=== PATIENT | female | born 1955 | race Caucasian/White ===

== ENCOUNTER 2018-12-19 16:40 | Emergency (ER) | payer MEDICARE, OTHER ==
[~2018-12-19] VITALS: Ht 170.2 cm; Wt 99.8 kg
[~2018-12-19 16:40] MED LIST: ALPR.25; ALPR.5 PO; CHLO25 PO; CLON.1 PO; Cyclobenzaprine5 MG PO; FOLI400 PO; GABA300 PO; HTN MEDICATION; HYDCHL12.5 PO; HYDCHL50 PO; Hair, Skin & N1 EACH PO; Hydrochlorothia50 MG PO; Keflex500 MG PO; LEVSOD50; LISI20 PO; LISI5 PO; LOVA20 PO; MECL12.5 PO; MELA3 PO; METO25 PO; MONT10T PO; Nicoderm Cq1 EAC1 TOP; Norco 5-325 Ta1 EACH PO; ONDA4ODT MM; PROM25 PO; Percocet 5-3251 EACH PO; Synthroid25 MCG PO; THIA100 PO; TRAZ50 PO; ULTRA-LIGHT RO1 EACH MC; VENL37.5 PO; VITAMIN D; Valium5 MG PO; WATER PILL; Zestril40 MG PO; Zofran Odt4 MG SL; [UNRECOGNIZED DRUG - REMARK]
[2018-12-19 17:26] LABS: BASOPHILS ABSOLUTE AUTO 0.04 K/mm3 (0.00-0.23); BASOPHILS PERCENT AUTO 0 % (0-2); EOSINOPHILS ABSOLUTE AUTO 0.18 K/mm3 (0.00-0.68); EOSINOPHILS PERCENT AUTO 2 % (0-6); Hemoglobin 17.3 g/dL (11.5-16.0); IMMATURE GRAN ABSOLUTE AUTO 0.03 K/mm3 (0.00-0.10); IMMATURE GRAN PERCENT AUTO 0 % (0-1); LYMPHOCYTES ABSOLUTE AUTO 3.19 K/mm3 (0.84-5.20); LYMPHOCYTES PERCENT AUTO 32 % (21-46); MONOCYTES ABSOLUTE AUTO 1.06 K/mm3 (0.16-1.47); MONOCYTES PERCENT AUTO 11 % (4-13); Mean Corpuscular HGB Conc 33.3 g/dL (31.5-36.5); Mean Corpuscular Volume 87 fL (80-100); Mean Platelet Volume 10.9 fL (9.1-12.4); NEUTROPHILS ABSOLUTE AUTO 5.51 K/mm3 (1.96-9.15); NEUTROPHILS PERCENT AUTO 55 % (41-73); Platelet Count 265 K/mm3 (150-400); RDW Coefficient Variation 12.9 % (11.7-14.2); RDW Standard Deviation 41.1 fL (35.1-46.3); Red Blood Cell Count 5.97 M/mm3 (3.80-5.20); White Blood Cell Count 10.01 K/mm3 (4.00-11.30)
[2018-12-19 17:51] LABS: Alanine Aminotransfer (ALT/SGP 18 U/L (12-78); Albumin, Blood 3.2 g/dL (3.4-5.0); Albumin/Globulin Ratio 0.7 (0.8-1.8); Alk Phos 141 U/L (50-136); Anion Gap 7 mmol/L (6-16); Aspartate Aminotrans (AST/SGOT 13 U/L (12-37); Bilirubin, Total 0.5 mg/dL (0.1-1.0); Blood Urea Nitrogen 14 mg/dL (8-24); Bun/Creatinine Ratio 15.1 (12.0-20.0); CO2, Blood 28 mmol/L (21-32); Calcium, Blood 9.7 mg/dL (8.5-10.1); Chloride, Blood 103 mmol/L (98-108); Creatinine, Blood 0.93 mg/dL (0.40-1.00); Free Thyroxine 1.34 ng/dL (0.70-1.60); Globulin, Blood 4.3 g/dL (2.2-4.0); Glomerular Filtration Rate >60 (60-); Glucose, Blood 313 mg/dL (70-99); Potassium, Blood 3.8 mmol/L (3.5-5.5); Sodium, Blood 138 mmol/L (136-145); Total Protein, Blood 7.5 g/dL (6.4-8.2)
[2018-12-19 18:32] LABS: Source, Urine Clean Catch
[2018-12-19 18:53] LABS: Bilirubin, Urine Neg (Neg); Blood, Urine Neg (Neg); Glucose Qualitative, Urine 4+ (Neg); Ketones, Urine Neg (Neg); Leukocyte Esterase, Urine Neg (Neg); Nitrite, Urine Neg (Neg); Protein, Urine 1+ (Neg); Specific Gravity, Urine 1.025 (1.003-1.022); Urobilinogen, Urine NORM (Normal)
[2018-12-19 18:55] LABS: Appearance, Urine Clear (Clear); Color, Urine Yellow (P-Yellow)
== END 2018-12-19 20:13 | disposition home or self-care (01) ==
LOC: ER 16:40
PROVIDERS: Emergency Medicine
DX: E11.65 Type 2 diabetes mellitus with hyperglycemia (principal); R42 Dizziness and giddiness; I10 Essential (primary) hypertension; E03.9 Hypothyroidism, unspecified; E78.00 Pure hypercholesterolemia, unspecified; Z79.899 Other long term (current) drug therapy
CPT/HCPCS: 36415; 71046; 80053; 82947; 83036; 83735; 84439; 84443; 85025; 93005; 93010; 96360; 99284-25; J7030

== ENCOUNTER 2019-09-24 09:28 | Emergency (ER) | payer MEDICARE, OTHER ==
[~2019-09-24] VITALS: Ht 167.6 cm; Wt 99.8 kg
[2019-09-24] MEDS ORDERED: METF500 PO (09:33)
[2019-09-24] MEDS ORDERED: IBUP800 PO (11:57)
[2019-09-24] MEDS ORDERED: Robaxin-750750 MG PO (11:57)
[2019-09-24] MEDS ORDERED: Norco 7.5-3251 EACH PO (11:57)
== END 2019-09-24 12:46 | disposition home or self-care (01) ==
LOC: ER 09:28
DX: M51.17 Intervertebral disc disorders with radiculopathy, lumbosacral region (principal); I10 Essential (primary) hypertension; E11.9 Type 2 diabetes mellitus without complications; E03.9 Hypothyroidism, unspecified; Z79.899 Other long term (current) drug therapy; Z79.84 Long term (current) use of oral hypoglycemic drugs; Z86.73 Personal history of transient ischemic attack (TIA), and cerebral infarction without residual deficits
CPT/HCPCS: 72100; 96372; 99283-25; J1170

== ENCOUNTER 2021-05-30 18:21 | Emergency (ER) | payer MEDICARE, OTHER ==
[~2021-05-30] VITALS: Ht 170.2 cm; Wt 88.5 kg
[~2021-05-30 18:21] MED LIST changes: +IBUP800 PO; +METF500 PO; +Norco 7.5-3251 EACH PO; +Robaxin-750750 MG PO
== END 2021-05-30 20:42 | disposition home or self-care (01) ==
LOC: ER 18:21
DX: S83.91XA Sprain of unspecified site of right knee, initial encounter (principal); I10 Essential (primary) hypertension; E11.9 Type 2 diabetes mellitus without complications; E03.9 Hypothyroidism, unspecified; Z79.899 Other long term (current) drug therapy; Z79.84 Long term (current) use of oral hypoglycemic drugs; Z86.73 Personal history of transient ischemic attack (TIA), and cerebral infarction without residual deficits; W18.30XA Fall on same level, unspecified, initial encounter
CPT/HCPCS: 73562-RT; 99283-25; A9270

== ENCOUNTER 2022-07-03 06:06 | Emergency (ER) | payer MEDICARE, OTHER ==
[~2022-07-03] VITALS: Ht 170.2 cm; Wt 87.1 kg
[2022-07-03 06:56] LABS: BASOPHILS ABSOLUTE AUTO 0.03 K/mm3 (0.00-0.23); BASOPHILS PERCENT AUTO 0 % (0-2); EOSINOPHILS ABSOLUTE AUTO 0.18 K/mm3 (0.00-0.68); EOSINOPHILS PERCENT AUTO 2 % (0-6); Hematocrit 50.4 % (33.0-51.0); Hemoglobin 16.3 g/dL (11.5-16.0); IMMATURE GRAN ABSOLUTE AUTO 0.02 K/mm3 (0.00-0.10); IMMATURE GRAN PERCENT AUTO 0 % (0-1); LYMPHOCYTES ABSOLUTE AUTO 2.58 K/mm3 (0.84-5.20); LYMPHOCYTES PERCENT AUTO 34 % (21-46); MONOCYTES ABSOLUTE AUTO 1.05 K/mm3 (0.16-1.47); MONOCYTES PERCENT AUTO 14 % (4-13); Mean Corpuscular HGB 27.8 pg (26.0-34.0); Mean Corpuscular HGB Conc 32.3 g/dL (31.5-36.5); Mean Corpuscular Volume 86 fL (80-100); Mean Platelet Volume 10.8 fL (9.1-12.4); NEUTROPHILS ABSOLUTE AUTO 3.85 K/mm3 (1.96-9.15); NEUTROPHILS PERCENT AUTO 50 % (41-73); Platelet Count 247 K/mm3 (150-400); RDW Coefficient Variation 12.9 % (11.7-14.2); Red Blood Cell Count 5.86 M/mm3 (3.80-5.20); White Blood Cell Count 7.71 K/mm3 (4.00-11.30)
[2022-07-03 07:09] LABS: Albumin/Globulin Ratio 0.8 (0.8-1.8); Bilirubin, Total 0.6 mg/dL (0.1-1.0); Bun/Creatinine Ratio 14.8 (12.0-20.0); Calcium, Blood 10.3 mg/dL (8.5-10.1); Creatinine, Blood 0.95 mg/dL (0.40-1.00); Globulin, Blood 3.9 g/dL (2.2-4.0); Total Protein, Blood 6.9 g/dL (6.4-8.2)
== END 2022-07-03 09:55 | disposition home or self-care (01) ==
LOC: ER 06:06
PROVIDERS: Student in an Organized Health Care Education/Training Program
DX: R42 Dizziness and giddiness (principal); S00.33XA Contusion of nose, initial encounter; E11.9 Type 2 diabetes mellitus without complications; I10 Essential (primary) hypertension; E03.9 Hypothyroidism, unspecified; Z79.899 Other long term (current) drug therapy; Z79.84 Long term (current) use of oral hypoglycemic drugs; Z86.73 Personal history of transient ischemic attack (TIA), and cerebral infarction without residual deficits; W18.30XA Fall on same level, unspecified, initial encounter; Y92.002 Bathroom of unspecified non-institutional (private) residence as the place of occurrence of the external cause
CPT/HCPCS: 70450; 71046; 72125; 80053; 83735; 83880; 84484; 85025; 93005; 93010; A9270; J1885

== ENCOUNTER 2023-01-05 09:29 | Day surgery (SDC) | payer MEDICARE, OTHER ==
[~2023-01-05] VITALS: Ht 170.2 cm; Wt 80.7 kg
[~2023-01-05 09:29] MED LIST changes: +ALBU90OI; +Aspir 8181 MG; +FARXIGA5 MG; +FLUO10; +MONT5TCH; +ROSU5
--- NOTE | 2023-01-05 11:11 | NUR ---
01/05/23 Bruna Lyman NO FURTHER QUESTIONS OR COMMENTS.
--- NOTE | 2023-01-05 11:37 | NUR ---
01/05/23 1137 Alexsandra Mathis 5ML OF NACL ADDED TO 5ML OF LIDOCAINE 2% WITH EPI 1:100,000 TO CREATE A LOCAL SOLUTION OF LIDOCAINE 1% WITH EPI 1:200,000. EPI USED TO SOAK PLEDGETTS FOR SURGICAL FIELD.
--- NOTE | 2023-01-05 12:40 | NUR ---
01/05/23 1240 Isabel Arcelia PATIENT'S HR IN 140S UPON ARRIVAL TO PACU. DR TUCKER AT BEDSIDE. PT WAS GIVEN 10MG EPHEDRINE IN OR BY DR TUCKER PER ANESTHESIA RECORD AND AFRIN. HR SLOWLY DECREASING AND AT 112-114 CURRENTLY. 02 AT 88-90% UPON ARRIVAL TO PACU AND PT PLACED ON 10L O2 VIA FT. O2 IMPROVED TO 100%. PT CURRENTLY ON RA AND SATS MAINTAINING AT 95% DRESSING FROM OR REMOVED AND MUSTACHE DRESSING PLACED. PT DENIES PAIN, DENIES NAUSEA. WILL CONTINUE TO MONITOR PATIENT.
--- NOTE | 2023-01-05 12:52 | NUR ---
01/05/23 1252 KAYLA LOPEZ PT HAVING NAUSEA. REGLAN ORDERED. AT BEDSIDE. PT STILL IN BED.
[2023-01-05 12:56] VITALS: BP 163/90
== END 2023-01-05 14:10 | disposition home or self-care (01) ==
LOC: ORSCSDS 09:29
PROVIDERS: Otolaryngology
PROC: 09BM0ZZ Excision of Nasal Septum, Open Approach (ICD-10-PCS; principal; 2023-01-05 11:00)
PROC: 09SL0ZZ Reposition Nasal Turbinate, Open Approach (ICD-10-PCS; principal; 2023-01-05 11:00)
DX: J34.2 Deviated nasal septum (principal); J34.3 Hypertrophy of nasal turbinates; I10 Essential (primary) hypertension; K21.9 Gastro-esophageal reflux disease without esophagitis; E11.9 Type 2 diabetes mellitus without complications; F41.8 Other specified anxiety disorders; E78.00 Pure hypercholesterolemia, unspecified; Z79.84 Long term (current) use of oral hypoglycemic drugs; Z79.82 Long term (current) use of aspirin; Z79.899 Other long term (current) drug therapy
CPT/HCPCS: 82947; C1776; J0171; J1100; J2250; J2405; J2550; J2704; J2710; J2765; J3010; J7120

== ENCOUNTER 2023-02-05 08:57 | Inpatient (IN) | payer MEDICARE, OTHER ==
[2023-02-05 09:38] LABS: BASOPHILS ABSOLUTE AUTO 0.05 K/mm3 (0.00-0.23); BASOPHILS PERCENT AUTO 1 % (0-2); EOSINOPHILS ABSOLUTE AUTO 0.21 K/mm3 (0.00-0.68); EOSINOPHILS PERCENT AUTO 2 % (0-6); Hematocrit 50.4 % (33.0-51.0); Hemoglobin 16.4 g/dL (11.5-16.0); IMMATURE GRAN ABSOLUTE AUTO 0.03 K/mm3 (0.00-0.10); IMMATURE GRAN PERCENT AUTO 0 % (0-1); LYMPHOCYTES ABSOLUTE AUTO 2.46 K/mm3 (0.84-5.20); LYMPHOCYTES PERCENT AUTO 25 % (21-46); MONOCYTES ABSOLUTE AUTO 1.13 K/mm3 (0.16-1.47); MONOCYTES PERCENT AUTO 12 % (4-13); Mean Corpuscular HGB 27.4 pg (26.0-34.0); Mean Corpuscular HGB Conc 32.5 g/dL (31.5-36.5); Mean Corpuscular Volume 84 fL (80-100); Mean Platelet Volume 10.2 fL (9.1-12.4); NEUTROPHILS ABSOLUTE AUTO 5.81 K/mm3 (1.96-9.15); NEUTROPHILS PERCENT AUTO 60 % (41-73); Platelet Count 254 K/mm3 (150-400); RDW Coefficient Variation 13.2 % (11.7-14.2); RDW Standard Deviation 40.5 fL (35.1-46.3); Red Blood Cell Count 5.99 M/mm3 (3.80-5.20); White Blood Cell Count 9.69 K/mm3 (4.00-11.30)
[2023-02-05 09:53] LABS: Albumin, Blood 3.2 g/dL (3.4-5.0); Albumin/Globulin Ratio 0.8 (0.8-1.8); Bilirubin, Total 0.5 mg/dL (0.1-1.0); Bun/Creatinine Ratio 15.7 (12.0-20.0); Calcium, Blood 10.2 mg/dL (8.5-10.1); Creatinine, Blood 1.02 mg/dL (0.40-1.00); Potassium, Blood 4.2 mmol/L (3.5-5.5); Total Protein, Blood 7.2 g/dL (6.4-8.2)
[2023-02-05 11:19] LABS: Source, Urine Straight Cath
[2023-02-05 11:54] LABS: Appearance, Urine Clear (Clear); Bilirubin, Urine Neg (Neg); Blood, Urine 1+ (Neg); Color, Urine Yellow (P-Yellow); Glucose Qualitative, Urine 4+ (Neg); Ketones, Urine 2+ (Neg); Leukocyte Esterase, Urine Neg (Neg); Nitrite, Urine Neg (Neg); Protein, Urine 2+ (Neg); Specific Gravity, Urine 1.015 (1.003-1.022); Urobilinogen, Urine NORM (Normal)
[2023-02-05 13:09] LABS: International Normalized Ratio 1.01; Prothrombin Time Results 10.6 Sec (9.7-11.5)
[2023-02-05 13:10] LABS: White Blood Cells, Urine 0-2 /hpf (0-5)
[2023-02-05 13:11] LABS: Bacteria Rare /hpf; Squamous Epithelial Cells Rare /hpf (Few)
--- NOTE | 2023-02-05 15:39 | NUR ---
RECIEVED REPORT FROM NIKHIL IN EMERGENCY DEPT. STATED THEY WOULD BE BRINGING THE PATIENT UP SOON TO BE ADMITTED TO MEDICAL FLOOR ROOM 360
[2023-02-05] MEDS ORDERED: ONDA4ODT PO (16:15)
[2023-02-05] MEDS ORDERED: LEVOTHYROXINE125 MC9 PO (16:15)
[2023-02-05] MEDS ORDERED: ALBU90OI INH (16:16)
[2023-02-05] MEDS ORDERED: Crestor40 MG PO (16:17)
[2023-02-05] MEDS ORDERED: MONT10T PO (16:17)
[2023-02-05] MEDS ORDERED: LISI20 PO (16:17)
[2023-02-05] MEDS ORDERED: FARXIGA5 MG PO (16:17)
[2023-02-05] MEDS ORDERED: METF500 PO (16:17)
[2023-02-05] MEDS ORDERED: Prozac20 MG PO (16:18)
[2023-02-05] MEDS ORDERED: FLONASE ALLERG9.9 M2 (16:19)
[2023-02-05 16:41] VITALS: BP 199/101
--- NOTE | 2023-02-05 17:46 | NUR ---
ADMISSION ASSESSMENT REVIEWED AND CHARTED WITH MALLORIE, STUDENT NURSE AND I AGREE WITH HER DOCUMENTATION FOR THIS PATIENT. PATIENT GIVEN SOME WATER ON ARRIVAL TO FLOOR AND SHE COUGHED SEVERAL TIMES AFTER A SMALL SIP. DR. HAIR NOTIFIED AND ST CONSULT ORDERED. B/P 199/101, DR HAIR IMFORMED OF THIS AND HE WANTS SBP BELOW 220 SO NO ORDERS RECEIVED. PATIENT WEAK ON L SIDE FROM PREVIOUS CVA AND NOW HAS R SIDED WEAKNESS FROM CVA TODAY. R FACIAL DROOP NOTED. PATIENT WEAKER ON R NOW THEN L. WEARING ATTENDS, REPORTS INCONTINENCE AND FREQUENCY. MULTIPLE BRUISSING AND SCABS TO BUE. YEAST RASH TO FOLDS, NYSTATIN POWDER ORDERED. FALL PRECAUTIONS IN PLACE. PATIENT ORIENTED TO ROOM AND USE OF CALL LIGHT.
[2023-02-05] MEDS ORDERED: ONDA4ODT MM (18:10)
[2023-02-05 20:58] VITALS: BP 177/98
--- NOTE | 2023-02-06 05:04 | NUR ---
SHIFT SUMMARY 67 YR F ADMITTED ON 02/05/23 FOR CVA. FULL CODE. NO ACUTE CHANGES THIS SHIFT. PT IS ABLE TO SPEAK LEGIBLY AND MAKE HER NEEDS KNOWN. SHE IS INCONTINENT BUT CALLS FOR ASSISTANCE TO GET CLEANED UP AND CHANGED. YEASTY PANNUS AND GROIN FOLDS WERE CLEANED AND NYSTATIN POWDER APPLIED. SHE STATED SHE WAS VERY TIRED AND WANTED TO SLEEP.
[2023-02-06 05:14] VITALS: BP 186/101
[2023-02-06 06:06] LABS: Albumin, Blood 2.8 g/dL (3.4-5.0); Albumin/Globulin Ratio 0.8 (0.8-1.8); Bilirubin, Total 0.9 mg/dL (0.1-1.0); Bun/Creatinine Ratio 11.3 (12.0-20.0); Calcium, Blood 9.4 mg/dL (8.5-10.1); Creatinine, Blood 0.97 mg/dL (0.40-1.00); Globulin, Blood 3.4 g/dL (2.2-4.0); Potassium, Blood 4.2 mmol/L (3.5-5.5); Total Protein, Blood 6.2 g/dL (6.4-8.2)
[2023-02-06 07:07] VITALS: BP 173/99
--- NOTE | 2023-02-06 09:37 | NUR ---
SPOKE TO DR KIRBY- PT MEDS CHANGED TO CRUSHED IN APPLESAUCE. PROZAC CAN NOT BE OPENED OR CRUSHED PER PHARMACY, ORDER CCHANGED TO LIQUID. PT HAS EC ASPIRIN 325MG ORDERED, CHANGED TO 81MG CHEW.
[2023-02-06 10:27] VITALS: BP 188/101
[2023-02-06 11:47] VITALS: BP 179/94
--- NOTE | 2023-02-06 11:55 | NUR ---
called dr perrin- PT SBP ELEVATED GREATER THAN 170, 1 HOUR AFTER RECIEVING PO LISINOPRIL. CALLED DR PERRIN. ORDER RECIEVED TO RECHECK BP IN 4 HOURS AND CALL IF STILL ELEVATED.
[2023-02-06 15:42] VITALS: BP 160/103
--- NOTE | 2023-02-06 15:42 | NUR ---
ELEVATED BP- repeat vitals completed sbp 160, less than 170 so md not notified.
--- NOTE | 2023-02-06 17:55 | NUR ---
SHIFT SUMMARY- PT HAS HAD NO ACUTE CHANGE T/O THE SHIFT. IVF INFUSING IN THE LAC IV, FLUSHES WELL. PT WORKED WITH PHYSICAL THERAPY TODAY, SHE IS A 2P MAX ASSIST WITH TRANSFERS. PT HAS A LITTLE DIFFICULTY FOLLOWING DIRECTIONS, IT TAKES A MINUTE TO PROCESS THE REQUEST, AND SOMETIMES REPEATING THE REQUEST. PT CURRENTLY IN BED, CALL LIGHT IN REACH, NO S&S OF DISTRESS NOTED. PT WAS SEEN BY SPEECH THERAPY AT THE START OF THE DAY, PUREE DIET ORDERED WITH MEDS CRUSHED IN APPLESAUCE. CALLED PHARMACY TO DETERMINE IF ALL MEDS CAN BE CRUSHED AND SPOKE TO MD TO CHANGE MEDS THAT CAN NOT BE CRUSHED. WILL PASS ALL ON IN BEDSIDE REPORT TO NIGHT RN.
--- NOTE | 2023-02-06 18:43 | NUR ---
PT HAD A LINE ASSEMBLER [employer] COME TO SEE HER THIS EVENING TO SAY A SMALL PRAYER.
[2023-02-06 19:45] VITALS: BP 177/99
[2023-02-07] VITALS (9 sets, daily range): BP systolic 157–190; BP diastolic 82–98
--- NOTE | 2023-02-07 04:05 | NUR ---
SHIFT SUMMERY, PT RESTING IN BED. PT CHANGED AND TURNED. PT ALERT AND ORIENTED, PT APPEARS TO BE COMFORTABLE, CALL LIGHT IN REACH.
--- NOTE | 2023-02-07 07:38 | NUR ---
MRI- RECIEVED A CALL FROM PUBLIC WELFARE WORKER. FOR CVA MRI'S THE ORDER SHOULD BE WO-CONTRAST. CALLED DR KIRBY TO CONFIRM THE ORDER CHANGE TO WO-CONTRAST. RECIEVED OK TO CHANGE THE ORDER TO MRI HEAD WITHOUT CONTRAST.
--- NOTE | 2023-02-07 09:51 | NUR ---
CALLED DR KIRBY- HELEN BP WAS ELEVATED THIS MORNING, SCHEDULED MEDS GIVEN A LITTLE EARLY PRIOR TO RECHECKING AND CONTACTING . ORDER WAS CHANGED TO 30MG FROM 20MG. CALLED , PT HAS ALREADY RECIEVED 20MG OF LISINOPRIL. RECIEVED AN ORDER FOR A OT 10MG PT DOSE OF LISINOPRIL AND WE WILL START THE 30MG DOSE TOMORROW. MANUAL BP WAS PERFORMED PRIOR TO CALLING 166/96.
--- NOTE | 2023-02-07 16:38 | NUR ---
PT C/O PAIN 10/10 WITH NUMBNESS IN THE RIGHT ARM. MANUAL BP CHECKED 190/98. PT DENIED THE NUMBENESS EARLIER IN THE SHIFT AND DESCRIBED THE PAIN (ONLY IN THE UPPER PART OF THE RIGHT ARM) AN ACHE RATES A 5/10.
--- NOTE | 2023-02-07 16:44 | NUR ---
SPOKE TO DR KIRBY- PT BP ELEVATED AND SHE IS C/O RIGHT ARM PAIN, THE ARM IS WARM TO TOUCH AND RADIAL PULSE IS PALAPBLE. MD AWARE. MD WILL ORDER BP MEDICATION.
--- NOTE | 2023-02-07 17:51 | NUR ---
SHIFT SUMMARY: PT IS A 67 YR OLD FEMALE A&O X4 HERE DAY 2 POST ISCHEMIC CVA. SHOWING SIGNS OF IMPROVEMENT SINCE YESTERDAY 02/06. EVALUATED BY ST AND SWITCHED FROM HONEY THICK LIQUIDS TO THIN W/O STRAWS. CONT. PUREE DIET AND MEDS CRUSHED IN APPLESAUCE. SHE IS TOLERATING THIN LIQUIDS AT THIS TIME WITH NO SIGNS OF ASPIRATING. BPs HAVE BEEN HYPERTENSIVE AND HAVE BEEN TREATING DIRECTED NOTED IN JONATHAN RN NOTES, ALONG WITH INCREASED R ARM PAIN WHICH HAD IMPROVED WITH THE ADMINISTRATION OF TYLENOL FROM 10/10 PAIN TO 5/10 PAIN. HEATING PAD APPLIED AN ADDTIONAL INTERVENTION FOR PAIN AT THIS TIME. HEATING PAD PLACED IN PILLOW CASE, SET TO 20 MIN INTERVALS, AND AT 100 DEGREES. PT'S BEN VISITS OFTEN, HE IS PLEASANT. PT RESTING AT THIS TIME, NO CURRENT S/S OF DISTRESS, AND CALL LIGHT IS WITHIN REACH.
--- NOTE | 2023-02-08 03:40 | NUR ---
SHIFT SUMMERY, PT SEEMS TO BE VERY COMFORTABLE AND PT SEEMD TO BE SLEEPING WELL. RESPERATIONS EVEN AND UNLABORED, CALL LIGHT IN REACH.
[2023-02-08 04:26] VITALS: BP 155/97
[2023-02-08 05:05] LABS: Bun/Creatinine Ratio 11.8 (12.0-20.0); Creatinine, Blood 1.02 mg/dL (0.40-1.00); Potassium, Blood 4.3 mmol/L (3.5-5.5)
[2023-02-08 07:13] VITALS: BP 154/90
--- NOTE | 2023-02-08 09:54 | NUR ---
DR KIRBY AT THE BEDSIDE- PT IV WAS LEAKING THIS MORNING, SHE HAS NO SCHEDULED IV MEDS. PT IS ON TELE WITH NO EVENTS. RECIEVED ORDER TO DC TELE AND NO IV ACCESS, PRN IV MEDS DC'D. PT AGREED TO DC TO SNF, RECIEVED AN ORDER FOR OT EVALUATION. PLAN IS FOR POSSIBLE DC THURSDAY OR THURSDAY DEPENDING ON CARE MANAGEMENT AVAILABILITY. IV AND TELE DC'D
[2023-02-08 15:08] VITALS: BP 173/98
--- NOTE | 2023-02-08 17:17 | NUR ---
SHIFT SUMMARY: PT IS A 67 YR OLD FEMALE A&O X4 3 DAYS POST CVA AND HOSPITALIZATION. HAS BEEN SHOWING IMPROVEMENT EACH DAY WITH SIGNS OF INCREASED STRENGTH WITH ROLLING, TURNING, AND SITTING UP. SHE VERBALIZES FEELINGS OF IMPROVEMENT. TELE AND IV ACCESS D/C'D TODAY. BPs HAVE BEEN BETTER TODAY. SHE DOES CONTINE TO C/O OF R ARM PAIN FLUCTUATING FROM 5/10-10/10 PAIN. 5/10 SEEMS TO BE HER BASELINE PAIN RATING AND A TOLERABLE LEVEL. PAIN HAS BEEN MANAGED WITH TYLENOL, HEAT, AND REPOSITIONING. GOAL IS TO D/C TO A [facility] FOR STRENGTH/MOBILIY REHAB. PT IS RESTING, AT BEDSIDE, CALL LIGHT WITHIN REACH, AND NO S/S OF DISTRESS.
[2023-02-08 20:07] VITALS: BP 183/93
[2023-02-09 04:41] VITALS: BP 155/81
--- NOTE | 2023-02-09 04:59 | NUR ---
SHIFT SUMMARY PT LAYING IN BED DURING BEDSIDE REPORT- CALL TO DR. BRYATN RE: HYPERTENSION, PT TO RESUME LISINOPRIL 40MG IN AM WHICH IS HOME DOSE- PT RECEIVED LISINOPRIL 30MG IN AM- NEW ORDER TO GIVE ONE TIME LISINOPRIL 10MG- BP DECREASED, BRIEF CHECKS AND REPOSITIONED Q2H- PT CALLED AND REQUESTED TO BE REPOSIIONED X2 DURING SHIFT- YEAST RASH UNDER BILAT BREAST AND ABDOMEN FOLD CLEANED DRIED AND RASH RESOLVING- PT HAD SMALL BM - PT SLEPT T/O NIGHT- BED LOW POSITION, CALL LIGHT WITHIN REACH
[2023-02-09 08:36] VITALS: BP 152/93
[2023-02-09 14:45] VITALS: BP 150/72
--- NOTE | 2023-02-09 17:53 | NUR ---
SHIFT SUMMARY- PT IS A/O, PLESANT AND COOPERATIVE. SHE IS EATING AND DRINKING WELL. SHE SLEPT INTERMITENTLY THIS SHIFT. SHE WORKED WITH PT AND TOLORATED WELL. SHE WAS UP TO THE CHAIR FOR MEALS. HER BED IS IN THE LOW POSITON AND CALL LIGHT IS WITIN REACH.
[2023-02-09 20:00] VITALS: BP 151/97
[2023-02-10 04:55] VITALS: BP 155/86
--- NOTE | 2023-02-10 06:45 | NUR ---
Shift Summary Incontinent, purewick in place. L+R sided deficits. VSS, no c/o of pain or discomfort. AOx4, pleasant and cooperative. On bedrest.
[2023-02-10 07:27] VITALS: BP 150/86
[2023-02-10 14:31] VITALS: BP 141/92
--- NOTE | 2023-02-10 15:55 | NUR ---
SHIFT SUMMARY PT A&OX4 AND IN PLEASENT MOOD T/O SHIFT. DENIES PAIN. VSS. TOLERATING PO INTAKE WELL. IN TO SEE PT DURING VISITING HOURS. CALL LIGHT W/ IN REACH.
[2023-02-10 19:44] VITALS: BP 156/87
[2023-02-11 05:14] VITALS: BP 145/89
--- NOTE | 2023-02-11 07:22 | NUR ---
Shift Summary Pt incontinent and chairfast. AOx4. Slept well t/o the night, VSS. Plan is to D/C, awaiting SNF.
--- NOTE | 2023-02-11 07:25 | NUR ---
ASSUMED CARE: PT RESTING IN BED AFTER CNAS REPOSITIONED AND CHANGED HER. FAMILY MEMBER AT BEDSIDE. NO ACUTE NEEDS OR CONCERNS AT THIS TIME.
[2023-02-11 07:37] VITALS: BP 144/82
[2023-02-11] MEDS ORDERED: ASPI81CH PO (12:38)
[2023-02-11] MEDS ORDERED: CLOP75 PO (12:39)
[2023-02-11 13:28] LABS: SARS-Cov-2 (COVID-19) PCR, MMC NEGATIVE (NEGATIVE)
--- NOTE | 2023-02-11 15:29 | NUR ---
DISCHARGE: PT TRANSPORTED VIA WHEEL CHAIR BY AMBULANCE SERVICE. REPORT CALLED TO SHARYN OSEGUERA TO DISCUSS PATIENT. AWARE OF DIET AND AMBULATION PRECAUTIONS AND THAT PT IS GOING THERE FOR REHAB. DENIED FURTHER QUESTIONS OR CONCERNS.
== END 2023-02-11 14:57 | DRG 65 ==
LOC: ER 08:57 → MEDS 14:36 → ENPENDDIS 02-11 12:17 → MEDS 02-11 14:57
PROVIDERS: Emergency Medicine; Internal Medicine; ADMIT Internal Medicine
DX: I63.81 Other cerebral infarction due to occlusion or stenosis of small artery (principal); G81.91 Hemiplegia, unspecified affecting right dominant side; I12.9 Hypertensive chronic kidney disease with stage 1 through stage 4 chronic kidney disease, or unspecified chronic kidney disease; E11.22 Type 2 diabetes mellitus with diabetic chronic kidney disease; N18.30 Chronic kidney disease, stage 3 unspecified; S69.91XA Unspecified injury of right wrist, hand and finger(s), initial encounter; S89.91XA Unspecified injury of right lower leg, initial encounter; E86.0 Dehydration; E89.0 Postprocedural hypothyroidism; W18.30XA Fall on same level, unspecified, initial encounter; M25.511 Pain in right shoulder; Z74.09 Other reduced mobility; Z20.822 Contact with and (suspected) exposure to COVID-19; Z79.84 Long term (current) use of oral hypoglycemic drugs; Z79.811 Long term (current) use of aromatase inhibitors; Z79.82 Long term (current) use of aspirin; Z79.51 Long term (current) use of inhaled steroids; Z79.899 Other long term (current) drug therapy; Z99.3 Dependence on wheelchair; Z88.1 Allergy status to other antibiotic agents; Z85.850 Personal history of malignant neoplasm of thyroid
CPT/HCPCS: 36415; 70450; 70496; 70498; 70551; 71046; 80048; 80053; 81001; 82947; 83880; 84443; 84484; 85025; 85610; 85730; 92526; 92610; 93005; 93010; 94760; 96361; 96374-59; 96375-59; 97110; 97112; 97116; 97162; 97166; 97530; 97535; 99291-25; A9270; C8929; J2060; J2405; J7030; J7120; P9612; Q3014; Q9957; Q9967; U0002

== ENCOUNTER 2023-05-29 17:58 | Emergency (ER) | payer MEDICARE, OTHER ==
[~2023-05-29] VITALS: Ht 170.2 cm; Wt 81.2 kg
[~2023-05-29 17:58] MED LIST changes: +ALBU90OI INH; +ASPI81CH PO; +CLOP75 PO; +Crestor40 MG PO; +FARXIGA5 MG PO; +FLONASE ALLERG9.9 M2; +LEVOTHYROXINE125 MC9 PO; +ONDA4ODT PO; +Prozac20 MG PO
[2023-05-29 18:56] LABS: BASOPHILS ABSOLUTE AUTO 0.02 K/mm3 (0.00-0.23); BASOPHILS PERCENT AUTO 0 % (0-2); EOSINOPHILS ABSOLUTE AUTO 0.02 K/mm3 (0.00-0.68); EOSINOPHILS PERCENT AUTO 0 % (0-6); Hematocrit 46.7 % (33.0-51.0); Hemoglobin 15.7 g/dL (11.5-16.0); IMMATURE GRAN ABSOLUTE AUTO 0.02 K/mm3 (0.00-0.10); IMMATURE GRAN PERCENT AUTO 0 % (0-1); LYMPHOCYTES PERCENT AUTO 16 % (21-46); MONOCYTES ABSOLUTE AUTO 1.76 K/mm3 (0.16-1.47); MONOCYTES PERCENT AUTO 28 % (4-13); Mean Corpuscular HGB 28.1 pg (26.0-34.0); Mean Corpuscular HGB Conc 33.6 g/dL (31.5-36.5); Mean Corpuscular Volume 84 fL (80-100); NEUTROPHILS ABSOLUTE AUTO 3.48 K/mm3 (1.96-9.15); NEUTROPHILS PERCENT AUTO 55 % (41-73); Platelet Count 177 K/mm3 (150-400); RDW Coefficient Variation 13.2 % (11.7-14.2); RDW Standard Deviation 40.2 fL (35.1-46.3); Red Blood Cell Count 5.58 M/mm3 (3.80-5.20)
[2023-05-29 19:02] LABS: Influenza A, PCR NEGATIVE (NEGATIVE); Influenza B, PCR NEGATIVE (NEGATIVE); Resp Syncytial Virus, PCR NEGATIVE (NEGATIVE)
[2023-05-29 19:16] LABS: SARS-Cov-2 (COVID-19) PCR, MMC POSITIVE (NEGATIVE)
[2023-05-29 19:17] LABS: Albumin, Blood 3.2 g/dL (3.4-5.0); Albumin/Globulin Ratio 0.8 (0.8-1.8); Bilirubin, Total 0.4 mg/dL (0.1-1.0); Bun/Creatinine Ratio 13.2 (12.0-20.0); Calcium, Blood 9.3 mg/dL (8.5-10.1); Creatinine, Blood 1.14 mg/dL (0.40-1.00); Globulin, Blood 3.8 g/dL (2.2-4.0); Potassium, Blood 3.3 mmol/L (3.5-5.5)
[2023-05-29 21:30] VITALS: BP 181/96
== END 2023-05-29 22:21 | disposition home or self-care (01) ==
LOC: ER 17:58
PROVIDERS: Student in an Organized Health Care Education/Training Program
DX: U07.1 COVID-19 (principal); Z88.1 Allergy status to other antibiotic agents; Z79.899 Other long term (current) drug therapy; Z79.82 Long term (current) use of aspirin; E11.9 Type 2 diabetes mellitus without complications; I10 Essential (primary) hypertension; E03.9 Hypothyroidism, unspecified; E78.00 Pure hypercholesterolemia, unspecified
CPT/HCPCS: 0241U; 71046; 80053; 83690; 83735; 84484; 85025; 93005; 93010; 99284-25

== ENCOUNTER 2023-07-25 13:52 | Emergency (ER) | payer OTHER, MEDICARE ==
[~2023-07-25] VITALS: Ht 170.2 cm; Wt 77.1 kg
[2023-07-25] MEDS ORDERED: METFORMIN HCL500 M2 PO (14:02)
[2023-07-25] MEDS ORDERED: EUTHYROX125 MC1 PO (14:03)
[2023-07-25 17:00] VITALS: BP 178/98
== END 2023-07-25 17:12 | disposition home or self-care (01) ==
LOC: ER 13:52
DX: M54.50 Low back pain, unspecified (principal); E11.9 Type 2 diabetes mellitus without complications; I10 Essential (primary) hypertension; E78.00 Pure hypercholesterolemia, unspecified; E03.9 Hypothyroidism, unspecified; Z88.1 Allergy status to other antibiotic agents; Z79.84 Long term (current) use of oral hypoglycemic drugs; Z79.82 Long term (current) use of aspirin; Z79.02 Long term (current) use of antithrombotics/antiplatelets; Z79.890 Hormone replacement therapy; Z79.899 Other long term (current) drug therapy; Z79.51 Long term (current) use of inhaled steroids; W01.0XXA Fall on same level from slipping, tripping and stumbling without subsequent striking against object, initial encounter
CPT/HCPCS: 70450; 71045; 72131; 72170; 93005; 93010; 99284-25; A9270

== ENCOUNTER 2023-08-29 05:46 | Inpatient (IN) | payer OTHER, MEDICARE ==
[2023-08-29] VITALS (13 sets, daily range): BP systolic 105–198; BP diastolic 75–100
[~2023-08-29] VITALS: Ht 162.6 cm; Wt 78.9 kg
[~2023-08-29 05:46] MED LIST changes: +EUTHYROX125 MC1 PO; +METFORMIN HCL500 M2 PO
[2023-08-29 07:49] LABS: BASOPHILS ABSOLUTE AUTO 0.05 K/mm3 (0.00-0.23); BASOPHILS PERCENT AUTO 1 % (0-2); EOSINOPHILS ABSOLUTE AUTO 0.07 K/mm3 (0.00-0.68); EOSINOPHILS PERCENT AUTO 1 % (0-6); Hematocrit 46.8 % (33.0-51.0); Hemoglobin 15.5 g/dL (11.5-16.0); IMMATURE GRAN ABSOLUTE AUTO 0.04 K/mm3 (0.00-0.10); IMMATURE GRAN PERCENT AUTO 0 % (0-1); LYMPHOCYTES ABSOLUTE AUTO 1.06 K/mm3 (0.84-5.20); LYMPHOCYTES PERCENT AUTO 10 % (21-46); MONOCYTES ABSOLUTE AUTO 1.26 K/mm3 (0.16-1.47); MONOCYTES PERCENT AUTO 12 % (4-13); Mean Corpuscular HGB 28.5 pg (26.0-34.0); Mean Corpuscular HGB Conc 33.1 g/dL (31.5-36.5); Mean Corpuscular Volume 86 fL (80-100); Mean Platelet Volume 10.2 fL (9.1-12.4); NEUTROPHILS PERCENT AUTO 77 % (41-73); Platelet Count 253 K/mm3 (150-400); RDW Coefficient Variation 12.7 % (11.7-14.2); RDW Standard Deviation 39.8 fL (35.1-46.3); Red Blood Cell Count 5.43 M/mm3 (3.80-5.20); White Blood Cell Count 10.98 K/mm3 (4.00-11.30)
[2023-08-29 08:17] LABS: Albumin, Blood 2.9 g/dL (3.4-5.0); Anion Gap 7 mmol/L (6-16); Blood Urea Nitrogen 12 mg/dL (8-24); Bun/Creatinine Ratio 12.2 (12.0-20.0); CO2, Blood 24 mmol/L (21-32); Calcium, Blood 9.5 mg/dL (8.5-10.1); Chloride, Blood 112 mmol/L (98-108); Creatinine, Blood 0.98 mg/dL (0.40-1.00); Glomerular Filtration Rate 62 (60-); Glucose, Blood 195 mg/dL (70-99); Phosphorus, Blood 1.7 mg/dL (2.5-4.9); Potassium, Blood 4.5 mmol/L (3.5-5.5); Sodium, Blood 143 mmol/L (136-145)
--- NOTE | 2023-08-29 19:23 | NUR ---
SHIFT SUMMARY POD0 L AIDE HIP,A/OX4, VSS, TOLERATING PO POST OP, DENIES PAIN, HAS NOT VOIDED SINCE OR BUT HAD A SPINAL AND WAS ONLY ON THE FLOOR FOR ABOUT 3 HOURS AFTER SURGERY (NOC RN AWARE), WAKES TO VERBAL STIMULI, ABLE TO WIGGLE TOES AT SHIFT CHANGE BUT HAD NO FEELING WHEN SHE ARRIVED TO THE FLOOR FROM PACU. PT WAS VERY DRY WHEN SHE ARRIVED AND HAS FLUIDS RUNNING ORDERED, PATIENT IS TACHY AND WAS GIVEN LABETALOL IN PACU AND ON TELEMETRY AND PROVIDER IS AWARE. NO OTHER EVENTS THIS SHFIT, CALL LIGHT IN REACH.
[2023-08-30 00:47] VITALS: BP 134/85
[2023-08-30 04:42] LABS: BASOPHILS ABSOLUTE AUTO 0.03 K/mm3 (0.00-0.23); BASOPHILS PERCENT AUTO 0 % (0-2); EOSINOPHILS ABSOLUTE AUTO 0.33 K/mm3 (0.00-0.68); EOSINOPHILS PERCENT AUTO 3 % (0-6); Hematocrit 41.2 % (33.0-51.0); Hemoglobin 13.1 g/dL (11.5-16.0); IMMATURE GRAN ABSOLUTE AUTO 0.03 K/mm3 (0.00-0.10); IMMATURE GRAN PERCENT AUTO 0 % (0-1); LYMPHOCYTES ABSOLUTE AUTO 1.57 K/mm3 (0.84-5.20); LYMPHOCYTES PERCENT AUTO 12 % (21-46); MONOCYTES ABSOLUTE AUTO 1.56 K/mm3 (0.16-1.47); MONOCYTES PERCENT AUTO 12 % (4-13); Mean Corpuscular HGB 28.4 pg (26.0-34.0); Mean Corpuscular HGB Conc 31.8 g/dL (31.5-36.5); Mean Corpuscular Volume 89 fL (80-100); Mean Platelet Volume 10.5 fL (9.1-12.4); NEUTROPHILS ABSOLUTE AUTO 9.54 K/mm3 (1.96-9.15); NEUTROPHILS PERCENT AUTO 73 % (41-73); Platelet Count 162 K/mm3 (150-400); RDW Coefficient Variation 13.2 % (11.7-14.2); RDW Standard Deviation 42.7 fL (35.1-46.3); Red Blood Cell Count 4.62 M/mm3 (3.80-5.20); White Blood Cell Count 13.06 K/mm3 (4.00-11.30)
[2023-08-30 05:03] VITALS: BP 121/71
[2023-08-30 05:07] LABS: Albumin, Blood 2.2 g/dL (3.4-5.0); Albumin/Globulin Ratio 0.7 (0.8-1.8); Bilirubin, Total 0.5 mg/dL (0.1-1.0); Bun/Creatinine Ratio 14.4 (12.0-20.0); Calcium, Blood 8.9 mg/dL (8.5-10.1); Creatinine, Blood 0.98 mg/dL (0.40-1.00); Globulin, Blood 3.2 g/dL (2.2-4.0); Magnesium, Blood 1.6 mg/dL (1.6-2.4); Total Protein, Blood 5.4 g/dL (6.4-8.2)
--- NOTE | 2023-08-30 07:28 | NUR ---
SHIFT SUMMARY POD #1 KIT PT HAS SLEPT THROUGH THE NIGHT WITH NO PROBLEMS, VSS, RESP UNLABORED, RA, ERNESTINA IN PLACE, LARS URINE NOTED, Q2 TURNS PROVIDED, AQUACEL C/D/I, CIRC WNL, DENIES N/T, TOLERATING PO INTAKE, NS INFUSING @ 70 ML/HR, REPORT GIVEN TO XAVIER BRYAN, CALL LIGHT IN REACH
[2023-08-30 07:41] VITALS: BP 115/84
[2023-08-30 14:59] VITALS: BP 131/71
--- NOTE | 2023-08-30 17:01 | NUR ---
SHIFT SUMMARY PATIENT IS AOX4, POD 1 LEFT AIDE HIP. AQUACEL DRESSING TO LEFT HIP C/D/I. PATIENT IS A 1-2 ASSIST WITH MARTINWWILLIE. WORKED WITH PT TODAY AND UP TO CHAIR FOR MEALS. PATIENT HAD BATH AND IS IN CLEAN ATTENDS WITH PUREWICK VOIDING WELL. ABLE TO TOLERATE PO INTAKE. MEDICATED FOR PAIN PER EMAR. VSS. CALL LIGHT IN REACH.
[2023-08-30 19:55] VITALS: BP 116/65
[2023-08-31 05:11] VITALS: BP 136/79
[2023-08-31 05:18] LABS: Hematocrit 37.5 % (33.0-51.0); Hemoglobin 12.5 g/dL (11.5-16.0); Mean Corpuscular HGB 28.9 pg (26.0-34.0); Mean Corpuscular HGB Conc 33.3 g/dL (31.5-36.5); Mean Corpuscular Volume 87 fL (80-100); Platelet Count 148 K/mm3 (150-400); RDW Coefficient Variation 13.1 % (11.7-14.2); RDW Standard Deviation 41.2 fL (35.1-46.3); Red Blood Cell Count 4.32 M/mm3 (3.80-5.20); White Blood Cell Count 13.77 K/mm3 (4.00-11.30)
[2023-08-31 05:44] LABS: Bun/Creatinine Ratio 20.9 (12.0-20.0); Calcium, Blood 8.8 mg/dL (8.5-10.1); Creatinine, Blood 1.1 mg/dL (0.40-1.00); Potassium, Blood 3.9 mmol/L (3.5-5.5)
[2023-08-31 07:04] VITALS: BP 134/77
--- NOTE | 2023-08-31 07:40 | NUR ---
SHIFT SUMMARY NO ACUTE CHANGES NOTED THROUGH THE NIGHT, PT IS A&O X3, VSS, SINUS TACH PER COMMUNITY SERVICE SPECIALIST, 2 L/MIN O2 VIA NC WHILE SLEEPING, TOLERATING PO INTAKE, VOIDING WNL, ATTENDS CHANGED PRN, Q2 TURNS, PAIN MANAGED W PO MEDS, AQUACEL DRSG TO L.HIP C/D/I, REPORT GIVEN TO NEXT SHIFT, RESTING QUIETLY IN BED, CALL LIGHT IN REACH
[2023-08-31 10:16] VITALS: BP 140/79
--- NOTE | 2023-08-31 14:26 | NUR ---
PT ASSISTED BACK TO BED WITH SIT TO STAND LIFT. ATTENDS CHANGED, SOME REDNESS NOTED TO COCCYX, AREA BLANCHES, ALLEVYN DRESSING PLACED FOR PRESSURE INJURY PREVENTION.
[2023-08-31 14:38] VITALS: BP 141/84
--- NOTE | 2023-08-31 17:12 | NUR ---
SHIFT SUMMARY PT IS POD#2 FROM L HIP REPAIR. PAIN MANAGED WITH TYLENOL AND TRAMADOL. PT WAS A 2 MAX ASSIST TO THE CHAIR WITH PHYSICAL THERAPY AND A 2 ASSIST WITH SIT TO STAND LIFT BACK TO BED. PT HAS REMAINED ON TELE T/O THE DAY, SINUS TACH. SPEECH THERAPY EVALUATED PT, DIET ADJUSTED ACCORDINGLY. PT VOMITED AFTER ATTEMTING TO EAT DINNER, ZOFRAN GIVEN. MIRALAX ORDERED PER DR. GRANDA. CALL LIGHT WITHIN REACH.
--- NOTE | 2023-08-31 17:40 | NUR ---
CLARIFIED WITH DR. CHAVIRA THAN TELE SHOULD BE DC'D. HE WAS NOTIFIED THAT PT IS STILL SINUS TACH AT 114 WHILE AT REST BUT HAS HAD NO OTHER EVENTS TODAY.
[2023-08-31 19:02] VITALS: BP 157/87
[2023-09-01 02:46] VITALS: BP 154/86
[2023-09-01 07:17] VITALS: BP 148/82
--- NOTE | 2023-09-01 07:29 | NUR ---
SHIFT SUMMARY NO ACUTE CHANGES NOTED, VSS, 2 L/MIN O2 VIA NC WHILE SLEEPING, PAIN MANAGED PER EMAR, PO PHENERGAN X1 FOR NAUSEA, NO EMESIS, VOIDING WNL, ATTENDS CHANGED PRN, SUPPOSITORY GIVEN THIS AM. RESP UNLAOBRED, REPORT GIVEN TO DAY RN, CALL LIGHT IN REACH
[2023-09-01 11:30] LABS: Influenza A, PCR NEGATIVE (NEGATIVE); Influenza B, PCR NEGATIVE (NEGATIVE); Resp Syncytial Virus, PCR NEGATIVE (NEGATIVE); SARS-Cov-2 (COVID-19) PCR, MMC NEGATIVE (NEGATIVE)
--- NOTE | 2023-09-01 15:01 | NUR ---
REPORT CALLED TO RH
== END 2023-09-01 15:31 | DRG 522 ==
LOC: ER 05:46 → SURS 05:47
PROVIDERS: Family Medicine; Hospitalist; Orthopaedic Surgery; ADMIT Internal Medicine
PROC: 0SRS0J9 Replacement of Left Hip Joint, Femoral Surface with Synthetic Substitute, Cemented, Open Approach (ICD-10-PCS; principal; 2023-08-29 12:00)
DX: S72.002A Fracture of unspecified part of neck of left femur, initial encounter for closed fracture (principal); I10 Essential (primary) hypertension; E03.9 Hypothyroidism, unspecified; E78.00 Pure hypercholesterolemia, unspecified; F32.A Depression, unspecified; W01.0XXA Fall on same level from slipping, tripping and stumbling without subsequent striking against object, initial encounter; Z79.84 Long term (current) use of oral hypoglycemic drugs; Z86.73 Personal history of transient ischemic attack (TIA), and cerebral infarction without residual deficits; Z79.82 Long term (current) use of aspirin; Z79.02 Long term (current) use of antithrombotics/antiplatelets; Z79.51 Long term (current) use of inhaled steroids; Z79.890 Hormone replacement therapy
CPT/HCPCS: 0241U; 36415; 72170; 73502; 80048; 80053; 80069; 82947; 83036; 83735; 85025; 85027; 92610; 94760; 96361; 96374; 96375; 96376; 97110; 97161; 97166; 97530; 99285-25; A9270; C1713; C1776; G0378; J0171; J0360; J0690; J0735; J1650; J1815; J1885; J2250; J2405; J2704; J2795; J3010; J3370; J7030; J7120

== ENCOUNTER → 2023-12-22 | Outpatient (CLI) | payer MEDICARE, OTHER | LOC: LAB 14:53 → LAB SHORT 14:53 | DX: E11.9 Type 2 diabetes mellitus without complications (principal) | CPT/HCPCS: 82043 ==

== ENCOUNTER → 2025-01-19 | Outpatient (CLI) | payer MEDICARE, OTHER ==
[2025-01-19 18:29] LABS: Microalb/Creat Ratio UR, Rand 85.345 mg/g (0.000-30.000)
== END ==
LOC: LAB 11:15 → LAB SHORT 11:15
PROVIDERS: Student in an Organized Health Care Education/Training Program
DX: E11.9 Type 2 diabetes mellitus without complications (principal)
CPT/HCPCS: 82043; 82570

== ENCOUNTER 2025-06-06 09:17 | Day surgery (SDC) | payer MEDICARE, OTHER ==
[~2025-06-06] VITALS: Ht 170.2 cm; Wt 77.1 kg
[~2025-06-06 09:17] MED LIST changes: +Balanced Salt Epinephrine Irrigation Solution 500 mL IR SCH; +Moxifloxacin HCL 0.5 MG/0.1 ML 0.4MLSYR LEFTEYE SCH; +PHENYLEPHRINE\\TROPICAMIDE\\TETRACAINE OPHTHALMIC DILATING SOLN LEFTEYE PRN; +Povidone-Iodine 450 DROP/30 ML Solution LEFTEYE SCH; +Povidone-Iodine 450 DROP/30 ML Solution ONE; +Tetracaine HCl/Pf 0.5% Opth Soln 4 ml ONE
[2025-06-06] MEDS ORDERED: Midazolam HCl 1MG / ML 2ML Vial ONE (09:37)
[2025-06-06] MEDS ORDERED: FentaNYL Citrate 50 MCG/ML 2 ML Injection ONE (09:37)
--- NOTE | 2025-06-06 10:01 | NUR ---
06/06/25 Carline1 Jia Lowe CALL LIGHT WITHIN REACH.
[2025-06-06] MEDS ORDERED: NS 1,000 ML IV ONE (10:08)
[2025-06-06 10:57] VITALS: BP 143/84
--- NOTE | 2025-06-06 10:58 | NUR ---
06/06/[address] AT BEDSIDE
== END 2025-06-06 11:16 | disposition home or self-care (01) ==
LOC: ORSCSDS 09:17
PROVIDERS: Student in an Organized Health Care Education/Training Program
PROC: 08RK3JZ Replacement of Left Lens with Synthetic Substitute, Percutaneous Approach (ICD-10-PCS; principal; 2025-06-06 11:00)
DX: E11.36 Type 2 diabetes mellitus with diabetic cataract (principal); H25.813 Combined forms of age-related cataract, bilateral; I10 Essential (primary) hypertension; E78.5 Hyperlipidemia, unspecified; E03.9 Hypothyroidism, unspecified; F41.9 Anxiety disorder, unspecified; J45.909 Unspecified asthma, uncomplicated; Z86.73 Personal history of transient ischemic attack (TIA), and cerebral infarction without residual deficits; Z79.82 Long term (current) use of aspirin; Z79.899 Other long term (current) drug therapy
CPT/HCPCS: J2250; J3010; J7120; V2632

== ENCOUNTER → 2025-08-18 | Outpatient (CLI) | payer MEDICARE, OTHER ==
[~2025-08-18] MED LIST changes: -Balanced Salt Epinephrine Irrigation Solution 500 mL IR SCH; -Moxifloxacin HCL 0.5 MG/0.1 ML 0.4MLSYR LEFTEYE SCH; -PHENYLEPHRINE\\TROPICAMIDE\\TETRACAINE OPHTHALMIC DILATING SOLN LEFTEYE PRN; -Povidone-Iodine 450 DROP/30 ML Solution LEFTEYE SCH; -Povidone-Iodine 450 DROP/30 ML Solution ONE; -Tetracaine HCl/Pf 0.5% Opth Soln 4 ml ONE
[2025-08-18 19:19] LABS: BASOPHILS ABSOLUTE AUTO 0.04 K/mm3 (0.00-0.23); BASOPHILS PERCENT AUTO 0 % (0-2); EOSINOPHILS ABSOLUTE AUTO 0.17 K/mm3 (0.00-0.68); EOSINOPHILS PERCENT AUTO 2 % (0-6); Hematocrit 46.0 % (33.0-51.0); Hemoglobin 15.0 g/dL (11.5-16.0); IMMATURE GRAN ABSOLUTE AUTO 0.03 K/mm3 (0.00-0.10); IMMATURE GRAN PERCENT AUTO 0 % (0-1); LYMPHOCYTES ABSOLUTE AUTO 3.03 K/mm3 (0.84-5.20); LYMPHOCYTES PERCENT AUTO 34 % (21-46); MONOCYTES ABSOLUTE AUTO 1.07 K/mm3 (0.16-1.47); MONOCYTES PERCENT AUTO 12 % (4-13); Mean Corpuscular HGB Conc 32.6 g/dL (31.5-36.5); Mean Corpuscular Volume 87 fL (80-100); NEUTROPHILS ABSOLUTE AUTO 4.69 K/mm3 (1.96-9.15); NEUTROPHILS PERCENT AUTO 52 % (41-73); NRBC ABSOLUTE 0.00 K/mm3 (0.00-0.02); NRBC Auto 0.0 /100 WBC (0.0-0.2); Platelet Count 237 K/mm3 (150-400); RDW Coefficient Variation 13.2 % (11.7-14.2); RDW Standard Deviation 42.3 fL (35.1-46.3)
[2025-08-18 19:42] LABS: Anion Gap 6.0 mmol/L (3-11); Blood Urea Nitrogen 15.0 mg/dL (8-24); CO2, Blood 27.0 mmol/L (21-32); Calcium, Blood 9.8 mg/dL (8.5-10.1); Chloride, Blood 108.0 mmol/L (98-108); Creatinine, Blood 1.03 mg/dL (0.40-1.00); Glucose, Blood 132.0 mg/dL (70-99); Potassium, Blood 4.0 mmol/L (3.5-5.5); Sodium, Blood 137.0 mmol/L (136-145)
== END ==
LOC: LAB 16:41 → LAB SHORT 16:41
PROVIDERS: Student in an Organized Health Care Education/Training Program
DX: E11.9 Type 2 diabetes mellitus without complications (principal); I10 Essential (primary) hypertension; M81.0 Age-related osteoporosis without current pathological fracture
CPT/HCPCS: 80048; 82306; 83036; 85025